=== PATIENT | female | born 1955 | race African-American/Black ===

== ENCOUNTER 2016-05-17 15:03 | Emergency (ER) | payer OTHER, MEDICAID ==
[~2016-05-17] VITALS: Ht 157.5 cm; Wt 90.0 kg
[~2016-05-17 15:03] MED LIST: ALBU8.5H3 INH; CARI350T29 PO; CYCL-319 PO; FURO-109 PO; HYDR-906 PO; IBUP-1542 PO; PRED50 PO
[2016-05-17 15:12] VITALS: Ht 157.5 cm; Wt 90.0 kg
[2016-05-17] MEDS ORDERED: IBUPROFEN 800 MG TAB PO ONE (15:30)
[2016-05-17 15:39] LABS: BASOPHILS % 0.6 % (0.0-2.0); EOSINOPHILS % 0.5 % (0.0-7.0); HEMATOCRIT 40.2 % (37.0-47.0); HEMOGLOBIN 13.5 g/dl (12.0-16.0); LYMPHOCYTES % 38.9 % (15.0-51.0); MEAN CORPUSCULAR HGB CONC 33.6 g/dl (32.0-37.0); MEAN CORPUSCULAR VOLUME 86.4 fl (82.0-101.0); MEAN PLATELET VOLUME 7.5 fl (7.4-10.4); MONOCYTE # 0.4 10^3/ul (0.3-0.9); MONOCYTES % 4.6 % (0.0-11.0); NEUTROPHIL # 4.3 10^3/ul (1.6-7.5); NEUTROPHILS % 55.4 % (39.0-77.0); PLATELET COUNT 326 10^3/UL (140-440); RED BLOOD COUNT 4.65 10^6/ul (4.20-5.40); RED CELL DISTRIBUTION WIDTH 16.2 % (11.5-14.5); UNCORRECTED WBC 7.7 10^3/ul (4.8-10.8); WHITE BLOOD COUNT 7.7 10^3/ul (4.8-10.8)
[2016-05-17 15:41] LABS: CONDITION 1; LH ANALYZER COMMENTS 1
--- NOTE | 2016-05-17 15:42 | RADRPT ---
PROCEDURE: XR Chest. CLINICAL INDICATION: Chest pain TECHNIQUE: Chest AP portable COMPARISON: 11/27/2015 FINDINGS: Left-sided single lead AICD device The mediastinal structures are unremarkable. There is calcification of the thoracic aorta (consiste nt with atherosclerosis). The heart is normal in size and configuration. The pulmonary vascularity is normal. The lung jolley are unremarkable. No consolidation is identified. The pleural spaces are unremarkable. The osseous structures are unremarkable. IMPRESSION: Calcification of the thoracic aorta (consistent with atherosclerosis). No evidence for active cardiopulmonary disease. RPTAT: HGDB .Paulie Valencia MD, Date Time Electronically viewed and signed by .Paulie Valencia MD, on 05/17/2016 15:42 .B/
[2016-05-17 15:46] LABS: CHLORIDE 109 mmol/L (97-110); INR 0.91; POTASSIUM 3.7 mmol/L (3.5-5.1); PROTIME 12.3 Sec (12.2-14.2); SODIUM 149 mmol/L (135-144)
[2016-05-17 15:49] LABS: ANION GAP 19 (8-16); BLOOD UREA NITROGEN 18 mg/dl (7-20); CALCIUM 9.2 mg/dl (8.4-10.2); CARBON DIOXIDE 25 mmol/L (21-31); CREATININE 0.75 mg/dl (0.44-1.00); GLUCOSE 83 mg/dl (70-220)
[2016-05-17 15:58] LABS: B-TYPE NATRIURETIC PEPTIDE 253 PG/ML (0-125)
[2016-05-17 16:06] LABS: TROPONIN-I < 0.012 ng/ml (0.00-0.12)
[2016-05-17] MEDS ORDERED: OSLT75C PO (16:13)
[2016-05-17] MEDS ORDERED: ALBU18HF INHALATION (16:13)
[2016-05-17] MEDS ORDERED: IBUP800T25 PO (16:13)
[2016-05-17] MEDS ORDERED: ONDANSETRON (ODT) 4 MG TAB ODT STA (16:16)
--- NOTE | 2016-05-17 16:19 | ERD ---
ER Documentation Chief Complaint Date/Time DATE: 05/17/16 TIME: 16:16 Chief Complaint SOB for 1 day, cough, body aches HPI 60-year-old female who presents with multiple complaints for 24 hours. She describes dry nonproductive cough, diffuse myalgias and body aches. She also describes a history of chronic pain and chronic sciatic pain. She denies any PND orthopnea or lower extremity swelling but does describe "heart issues ". She denies any chest pain, no pleuritic pain, no dyspnea on exertion. She felt congested and presented herself to the emergency room. ROS All systems reviewed and are negative except as per history of present illness. Medications Home Meds Active Scripts Albuterol Sulfate* (Ventolin HFA*) 18 Gm Hfa.aer.ad, 2 PUFF INHALATION Q4H, #1 INHALER Prov:GAETANO LOCKWOOD MD 05/17/16 Ibuprofen* (Motrin*) 800 Mg Tab, 800 MG PO Q6H Y for PAIN AND OR ELEVATED TEMP, #30 TAB Prov:GAETANO LOCKWOOD MD 05/17/16 Oseltamivir Phosphate* (Tamiflu*) 75 Mg Capsule, 75 MG PO BID for 5 Days, CAP Prov:GAETANO LOCKWOOD MD 05/17/16 Hydrocodone/Acetaminophen ([place] 5-325 Tablet) 1 Each Tablet, 1 EACH PO Q8 Y for PAIN LEVEL 6-10, #20 TAB Prov:PRADIP SAGE 11/27/15 Discontinued Scripts Cyclobenzaprine Hcl* (Cyclobenzaprine Hcl*) 10 Mg Tablet, 10 MG PO TID, #15 TAB Prov:ABIGAIL AHUMADA NP 12/05/15 Hydrocodone/Acetaminophen ([place] 5-325 Tablet) 1 Each Tablet, 1 TAB PO Q6H Y for PAIN, #7 TAB Prov:ABIGAIL AHUMADA NP 12/05/15 Ibuprofen* (Motrin*) 600 Mg Tab, 600 MG PO Q6H Y for PAIN AND OR ELEVATED TEMP, #30 TAB Prov:ABIGAIL AHUMADA NP 12/05/15 Carisoprodol* (Carisoprodol*) 350 Mg Tablet, 350 MG PO Q8 Y for MUSCLE SPASMS, # 10 TAB Prov:PRADIP SAGE 11/27/15 Prednisone (Prednisone) 50 Mg Tab, 50 MG PO DAILY for 5 Days, TAB Prov:PRADIP SAGE 11/27/15 Albuterol Sulfate* (Proair HFA*) 8.5 Gm Hfa.aer.ad, 2 PUFF INH Q4H Y for WHEEZING AND SOB, #1 INHALER Prov:PRADIP SAGE 11/27/15 Furosemide* (Lasix*) 40 Mg Tablet, 40 MG PO DAILY, #20 TAB Prov:PRADIP SAGE 11/27/15 Allergies Allergies: Coded Allergies: lisinopril (Unverified Allergy, Unknown, 05/17/16) PMhx/Soc History of Surgery: Yes (Pacemaker Placed/Removal,) Anesthesia Reaction: No Hx Neurological Disorder: Yes (Bruxism) Hx Respiratory Disorders: Yes (Asthma) Hx Cardiac Disorders: Yes (HTN,CHF) Hx Psychiatric Problems: No Hx Miscellaneous Medical Probl: Yes (L Foot Fx,Muscle Spasms) Hx Alcohol Use: No Hx Substance Use: No Hx Tobacco Use: No FmHx Family History: No diabetes Physical Exam Vitals Vital Signs Date Time Temp Pulse Resp B/P Pulse Ox O2 Delivery O2 Flow Rate FiO2 05/17/16 15:12 98.2 84 16 121/85 100 Physical Exam General: Well developed, well nourished, no acute distress Head: Normocephalic, atraumatic. Eyes: Pupils equally reactive, EOM intact ENT: Moist mucous membranes Neck: Supple, no lymphadenopathy Respiratory: Lungs clear bilaterally, no distress Cardiovascular: RRR, no murmurs, rubs, or gallops Abdominal: Soft, non-tender, non-distended, no peritoneal signs : Deferred MSK: No edema, no unilateral swelling, 5/5 strength Neurologic: Alert and oriented, moving all extremities, normal speech, no focal weakness, no cerebellar signs Skin: No rash Psych: Normal mood Result Diagram: 05/17/16 1525 05/17/16 1525 Results 24 hrs Laboratory Tests Test 05/17/16 15:25 Activated Partial Thromboplast Time 27.0Sec Anion Gap 19 B-Type Natriuretic Peptide 253PG/ML Basophils # 0.010^3/ul Basophils % 0.6% Blood Morphology Comment Blood Urea Nitrogen 18mg/dl Calcium Level 9.2mg/dl Carbon Dioxide Level 25mmol/L Chloride Level 109mmol/L Creatinine 0.75mg/dl Eosinophils # 0.010^3/ul Eosinophils % 0.5% Glucose Level 83mg/dl Hematocrit 40.2% Hemoglobin 13.5g/dl INR International Normalized Ratio 0.91 Lymphocytes # 3.010^3/ul Lymphocytes % 38.9% Mean Corpuscular Hemoglobin 29.0pg Mean Corpuscular Hemoglobin Concent 33.6g/dl Mean Corpuscular Volume 86.4fl Mean Platelet Volume 7.5fl Monocytes # 0.410^3/ul Monocytes % 4.6% Neutrophils # 4.310^3/ul Neutrophils % 55.4% Nucleated Red Blood Cells # 0.010^3/ul Nucleated Red Blood Cells % 0.0/100WBC Platelet Count 29227^3/UL Potassium Level 3.7mmol/L Prothrombin Time 12.3Sec Prothrombin Time Ratio 1.0 Red Blood Count 4.6510^6/ul Red Cell Distribution Width 16.2% Sodium Level 149mmol/L Troponin I < 0.012ng/ml White Blood Count 7.710^3/ul Current Medications Medications (Trade) Dose Ordered Sig/Valorie Route PRN Reason Start Time Stop Time Status Last Admin Dose Admin Ibuprofen (Motrin) 800 mg ONCE ONCE PO 05/17/16 15:30 05/17/16 15:31 DC 05/17/16 15:30 Procedures/MDM EKG, MONITORS, & DIAGNOSTIC IMAGING: EKG: I reviewed and interpreted a 12-lead EKG. Rhythm: Normal sinus rhythm Ectopy: None Intervals: No abnormalities ST segments: No elevations or depressions T waves: No contiguous inversions Chest x-ray: I reviewed and interpreted a 1 view of the chest Mediastinum: No enlargement Cardiac silhouette: No cardiomegaly Airspace: Clear lung jolley bilaterally without evidence of pneumothorax Bones: No evidence of fracture LAB INTERPRETATION: No leukocytosis, negative troponin, indeterminate BNP MEDICAL DECISION MAKING: The patient presents with cough congestion and flulike symptoms. The patient will likely benefit from Tamiflu given the patient's age, comorbidities and duration of symptoms. I do not believe this is consistent with cardiac etiology or CHF however the patient does describe some cardiac issues and does have an AICD in place. However, clinically she has no evidence of volume overload no exertional symptoms and again no chest pain. ER COURSE: Troponin is negative, BNP is indeterminate. The patient was given chronic pain medication in the form of [place]. I believe the patient would benefit from Tamiflu initiation, Ventolin and symptom control. The patient was advised to follow-up with her primary care physician and we did discuss return precautions. At this time no indication for antibiotics. I kept the patient and/or family informed of laboratory and diagnostic imaging results throughout the emergency room course. DISPOSITION PLAN: We discussed follow up with the patient's primary care doctor within 24 to 48 hours as needed. We also discussed return to the emergency room for worsening symptoms or worsening condition. Discharge Medications: Tamiflu, Ventolin, Motrin Departure Diagnosis: Primary Impression: Cough Additional Impression: Influenza-like illness Condition: Stable Patient Instructions: Influenza (Adult) Referrals: [facility], [facility] YOU HAVE RECEIVED A MEDICAL SCREENING EXAM AND THE RESULTS INDICATE THAT YOU DO NOT HAVE A CONDITION THAT REQUIRES URGENT TREATMENT IN THE EMERGENCY DEPARTMENT. FURTHER EVALUATION AND TREATMENT OF YOUR CONDITION CAN WAIT UNTIL YOU ARE SEEN IN YOUR DOCTORS OFFICE WITHIN THE NEXT 1-2 DAYS. IT IS YOUR RESPONSIBILITY TO MAKE AN APPOINTMENT FOR [facility]. IF YOU HAVE A PRIMARY DOCTOR --you should call your primary doctor and schedule an appointment IF YOU DO NOT HAVE A PRIMARY DOCTOR YOU CAN CALL OUR PHYSICIAN REFERRAL HOTLINE AT IF YOU CAN NOT AFFORD TO SEE A PHYSICIAN YOU CAN CHOSE FROM THE FOLLOWING [facility], [facility] [address] [facility]. [facility] [address] [facility] [address] [facility] [facility] [address] [facility] [facility] [address] [facility]. [facility]. [address] [facility]. [facility] YOU HAVE RECEIVED A MEDICAL SCREENING EXAM AND THE RESULTS INDICATE THAT YOU DO NOT HAVE A CONDITION THAT REQUIRES URGENT TREATMENT IN THE EMERGENCY DEPARTMENT. FURTHER EVALUATION AND TREATMENT OF YOUR CONDITION CAN WAIT UNTIL YOU ARE SEEN IN YOUR DOCTORS OFFICE WITHIN THE NEXT 1-2 DAYS. IT IS YOUR RESPONSIBILITY TO MAKE AN APPOINTMENT FOR [facility]. IF YOU HAVE A PRIMARY DOCTOR --you should call your primary doctor and schedule and appointment IF YOU DO NOT HAVE A PRIMARY DOCTOR YOU CAN CALL OUR PHYSICIAN REFERRAL HOTLINE AT . IF YOU CAN NOT AFFORD TO SEE A PHYSICIAN YOU CAN CHOSE FROM THE FOLLOWING [facility] INSTITUTIONS: [facility] [address] [place] [address] [facility] [address] [place] [address] [facility] [address] [place] [address] Additional Instructions: Call your primary care doctor TOMORROW for an appointment during the next 1 WEEK.Tell the department secretary that you were referred from this facility.See the doctor sooner or return here if your condition worsens before your appointment time. GAETANO LOCKWOOD MD May 17, 2016 16:19
[2016-05-17] MEDS ORDERED: HYDROCODONE/APAP (10/325) TAB PO ONE (16:30)
[2016-05-17 16:33] VITALS: BP 137/84; PULSE 90; RESP 16; TEMP 98.1
== END 2016-05-17 16:45 | disposition home or self-care (01) ==
LOC: E/R 15:03
DX: R05 Cough (principal); R06.02 Shortness of breath; M79.1 Myalgia; J45.909 Unspecified asthma, uncomplicated; I10 Essential (primary) hypertension; I50.9 Heart failure, unspecified; Z95.0 Presence of cardiac pacemaker
CPT/HCPCS: 36415; 71010; 80048; 83880; 84484; 85025; 85610; 85730; 93005

== ENCOUNTER 2016-07-13 19:35 | Emergency (ER) | payer MEDICAID, MEDICARE, OTHER ==
[~2016-07-13] VITALS: Wt 83.5 kg
[~2016-07-13 19:35] MED LIST changes: +ALBU18HF INHALATION; -ALBU8.5H3 INH; -CARI350T29 PO; -CYCL-319 PO; -FURO-109 PO; -IBUP-1542 PO; +IBUP800T25 PO; +OSLT75C PO; -PRED50 PO
[2016-07-13] MEDS ORDERED: KETOROLAC 60 MG INJ IM STA (20:14)
[2016-07-13] MEDS ORDERED: OXYCODONE/ACETAMINOPHEN (5/325) TAB PO ONE ×2 (20:30→21:00)
[2016-07-13] MEDS ORDERED: OXYC-279 PO (20:41)
[2016-07-13] MEDS ORDERED: MED4DP PO (20:42)
[2016-07-13] MEDS ORDERED: D-ME473S18 PO (20:43)
[2016-07-13] MEDS ORDERED: ONDA4TAB8 PO (20:43)
[2016-07-13 20:56] VITALS: BP 141/73; PULSE 89; RESP 17; TEMP 99.3
--- NOTE | 2016-07-13 20:58 | ERD ---
ER Documentation Chief Complaint Date/Time DATE: 07/13/16 TIME: 20:55 Chief Complaint lower back pain radiating to left leg HPI This is a 60-year-old female that presents to the ER with chronic back pain. Patient has had adequate for years and takes [place] for her pain however has not been working. Pain is throbbing in quality located in the left buttocks radiating down her left leg. Pain is severe and constant. Patient denies any urinary bowel incontinence. She denies any saddle like anesthesia. Patient denies any fevers or chills. She denies any recent falls. Patient denies any urinary frequency or dysuria. ROS 12 point review of systems was done, all negative except per HPI. Medications Home Meds Active Scripts Dextromethorphan Hb-Promethazine Hcl (Promethazine DM Syrup) 473 Ml Syrup, 10 ML PO Q6H Y for COUGH, #4 OZ Prov:DONYA JARAMILLO 07/13/16 Ondansetron Hcl* (Zofran*) 4 Mg Tablet, 4 MG PO Q6H for NAUSEA AND/OR VOMITING, #30 TAB Prov:DONYA JARAMILLO 07/13/16 Methylprednisolone* (Medrol* DOSE PACK) 4 Mg/Dose-Pack Tab.ds.pk, 4 MG PO . DIRECTED for 6 Days, PACKET Prov:DONYA JARAMILLO 07/13/16 Oxycodone HCl/Acetaminophen (Percocet 5-325 mg Tablet) 1 Each Tablet, 1 EACH PO Q6, #10 TAB Prov:DONYA JARAMILLO 07/13/16 Albuterol Sulfate* (Ventolin HFA*) 18 Gm Hfa.aer.ad, 2 PUFF INHALATION Q4H, #1 INHALER Prov:GAETANO LOCKWOOD MD 05/17/16 Ibuprofen* (Motrin*) 800 Mg Tab, 800 MG PO Q6H Y for PAIN AND OR ELEVATED TEMP, #30 TAB Prov:GAETANO LOCKWOOD MD 05/17/16 Oseltamivir Phosphate* (Tamiflu*) 75 Mg Capsule, 75 MG PO BID for 5 Days, CAP Prov:GAETANO LOCKWOOD MD 05/17/16 Hydrocodone/Acetaminophen ([place] 5-325 Tablet) 1 Each Tablet, 1 EACH PO Q8 Y for PAIN LEVEL 6-10, #20 TAB Prov:PRADIP SAGE 11/27/15 Allergies Allergies: Coded Allergies: lisinopril (Unverified Allergy, Unknown, 07/13/16) PMhx/Soc History of Surgery: Yes (Pacemaker Placed/Removal,) Anesthesia Reaction: No Hx Neurological Disorder: Yes (Bruxism) Hx Respiratory Disorders: Yes (Asthma) Hx Cardiac Disorders: Yes (HTN,CHF) Hx Psychiatric Problems: No Hx Miscellaneous Medical Probl: Yes (L Foot Fx,Muscle Spasms) Hx Alcohol Use: No Hx Substance Use: No Hx Tobacco Use: No Physical Exam Vitals Vital Signs Date Time Temp Pulse Resp B/P Pulse Ox O2 Delivery O2 Flow Rate FiO2 07/13/16 19:43 99.6 104 20 136/78 98 Physical Exam GENERAL: The patient is well developed and appropriate for usual state of health , in no apparent distress. CHEST: Clear to auscultation bilaterally. There are no rales, wheezes or rhonchi. HEART: Regular rate and rhythm. No murmurs, clicks, rubs or gallops. ABDOMEN: Soft, nontender and nondistended. Good bowel sounds. No rebound or guarding. No gross peritonitis. No gross organomegaly or masses. No Jacob sign or McBurney point tenderness. No pulsatile abdominal mass. BACK: No midline or flank tenderness. Tense paraspinal muscles. Negative leg raise test. No step- offs. EXTREMITIES: Full range of motion. Grossly neurovascularly intact. NEURO: Alert and oriented. Cranial nerves II through XII are intact. Results 24 hrs Current Medications Medications (Trade) Dose Ordered Sig/Valorie Route PRN Reason Start Time Stop Time Status Last Admin Dose Admin Ketorolac Tromethamine (Toradol) 60 mg ONCE STAT IM 07/13/16 20:14 07/13/16 20:16 DC 07/13/16 20:23 Oxycodone/ Acetaminophen (Percocet (5/ 325)) 1 tab ONCE ONCE PO 07/13/16 20:30 07/13/16 20:31 DC 07/13/16 20:23 Oxycodone/ Acetaminophen (Percocet (5/ 325)) 1 tab ONCE ONCE PO 07/13/16 21:00 07/13/16 21:01 Procedures/MDM Differential Diagnosis includes but is not limited to back strain, vertebral fracture, epidural abscess, cauda equina, herniated disc, AAA rupture, kidney stones, UTI, pyelonephritis. Patient has acute on chronic back pain. She suffers from sciatica. Patient was given Toradol IM in the ER without any complications and 1 Percocet. Patient was requesting Dilaudid, however I do not believe that this is necessary. Patient for cauda equina, epidural abscess is low. Patient is neurovascularly intact and has full range of motion of bilateral extremities. Patient will be sent home with a Medrol Dose pack and a short course of percocet. Patient is to follow-up with her primary care doctor within 1-2 days or return to ER sooner if symptoms worsen. My medical decision making was shared with patient she understands and agrees with plan. Departure Diagnosis: Primary Impression: Back pain Condition: Stable Patient Instructions: Back Pain W/ Sciatica Additional Instructions: Call your primary care doctor TOMORROW for an appointment during the next 1-2 days.See the doctor sooner or return here if your condition worsens before your appointment time. DONYA JARAMILLO Jul 13, 2016 20:58
== END 2016-07-13 21:24 | disposition home or self-care (01) ==
LOC: FTE 19:35
DX: M54.5 Low back pain (principal); I10 Essential (primary) hypertension; I50.9 Heart failure, unspecified; J45.909 Unspecified asthma, uncomplicated; Z95.0 Presence of cardiac pacemaker
CPT/HCPCS: 96372; J1885

== ENCOUNTER 2016-09-04 18:28 | Emergency (ER) | payer MEDICARE, MEDICAID ==
[~2016-09-04] VITALS: Ht 152.4 cm; Wt 81.8 kg
[~2016-09-04 18:28] MED LIST changes: +D-ME473S18 PO; +MED4DP PO; +ONDA4TAB8 PO; +OXYC-279 PO
[2016-09-04 18:55] VITALS: Ht 152.4 cm; Wt 81.8 kg
[2016-09-04] MEDS ORDERED: KETOROLAC 30 MG INJ IM STA (19:50)
[2016-09-04] MEDS ORDERED: NAPR-260 PO (19:52)
[2016-09-04] MEDS ORDERED: ALBU8.5H3 INH (19:52)
[2016-09-04] MEDS ORDERED: HYDROCODONE/APAP (5/325) TAB PO ONE (20:00)
--- NOTE | 2016-09-04 20:04 | ERD ---
ER Documentation Chief Complaint Date/Time DATE: 09/04/16 TIME: 19:58 Chief Complaint c/o increasing back pain today. denies trauma. HPI Patient is a 60-year-old female with past medical history of chronic back pain, chronic bronchitis, who presents to the ED with worsening back pain today. Patient has had chronic back pain for many years now. Patient reports taking [place] with no relief of symptoms. Patient denies any recent falls or trauma. She states that the pain does radiate down her left buttocks. Patient denies any saddle anesthesia, urinary incontinence, stool incontinence, fever, chills, chest pain, shortness of breath, dysuria, urinary frequency, urinary urgency or hematuria. She is requesting refill of her albuterol inhaler at this time. ROS All systems reviewed and are negative except as per history of present illness. Medications Home Meds Active Scripts Hydrocodone/Acetaminophen (Olive Branch 5-325 Tablet) 1 Each Tablet, 1 TAB PO Q6H Y for PAIN, #7 TAB Prov:CHAVEZ LIM PA-C 09/04/16 Albuterol Sulfate* (Proair HFA*) 8.5 Gm Hfa.aer.ad, 2 PUFF INH Q4, #1 INHALER Prov:CHAVEZ LIM PA-C 09/04/16 Naproxen* (Naprosyn*) 500 Mg Tablet, 500 MG PO BID Y for PAIN AND/OR INFLAMMATION, #30 TAB Prov:CHAVEZ LIM PA-C 09/04/16 Dextromethorphan Hb-Promethazine Hcl (Promethazine DM Syrup) 473 Ml Syrup, 10 ML PO Q6H Y for COUGH, #4 OZ Prov:DONYA JARAMILLO 07/13/16 Ondansetron Hcl* (Zofran*) 4 Mg Tablet, 4 MG PO Q6H for NAUSEA AND/OR VOMITING, #30 TAB Prov:DONYA JARAMILLO 07/13/16 Methylprednisolone* (Medrol* DOSE PACK) 4 Mg/Dose-Pack Tab.ds.pk, 4 MG PO . DIRECTED for 6 Days, PACKET Prov:DONYA JARAMILLO 07/13/16 Oxycodone HCl/Acetaminophen (Percocet 5-325 mg Tablet) 1 Each Tablet, 1 EACH PO Q6, #10 TAB Prov:DONYA JARAMILLO 07/13/16 Albuterol Sulfate* (Ventolin HFA*) 18 Gm Hfa.aer.ad, 2 PUFF INHALATION Q4H, #1 INHALER Prov:GAETANO LOCKWOOD MD 05/17/16 Ibuprofen* (Motrin*) 800 Mg Tab, 800 MG PO Q6H Y for PAIN AND OR ELEVATED TEMP, #30 TAB Prov:GAETANO LOCKWOOD MD 05/17/16 Oseltamivir Phosphate* (Tamiflu*) 75 Mg Capsule, 75 MG PO BID for 5 Days, CAP Prov:GAETANO LOCKWOOD MD 05/17/16 Hydrocodone/Acetaminophen (O[place] 5-325 Tablet) 1 Each Tablet, 1 EACH PO Q8 Y for PAIN LEVEL 6-10, #20 TAB Prov:PRADIP SAGE 11/27/15 Allergies Allergies: Coded Allergies: lisinopril (Unverified Allergy, Unknown, 07/13/16) PMhx/Soc History of Surgery: Yes (Pacemaker Placed/Removal,) Anesthesia Reaction: No Hx Neurological Disorder: Yes (Bruxism) Hx Respiratory Disorders: Yes (Asthma) Hx Cardiac Disorders: Yes (HTN,CHF) Hx Psychiatric Problems: No Hx Miscellaneous Medical Probl: Yes (L Foot Fx,Muscle Spasms) Hx Alcohol Use: Yes (daily pint) Hx Substance Use: No Hx Tobacco Use: Yes (1/2 ppd) Smoking Status: Never smoker FmHx Family History: No diabetes Physical Exam Vitals Vital Signs Date Time Temp Pulse Resp B/P Pulse Ox O2 Delivery O2 Flow Rate FiO2 09/04/16 18:55 98.0 101 20 141/86 96 Physical Exam GENERAL: Well-developed, well-nourished female. Appears in no acute distress. HEAD: Normocephalic, atraumatic. EYES: Pupils are equally reactive bilaterally. EOMs grossly intact. No conjunctival erythema. ENT: Moist mucous membranes. No uvula deviation. No kissing tonsils. NECK: Supple. No meningismus. Normal range of motion of the neck. LUNG: Clear to auscultation bilaterally. No rhonchi, wheezing, rales or coarse breath sounds. HEART: Regular rate and rhythm. No murmurs, rubs or gallops. ABDOMEN: No scars, ecchymosis or rashes noted. Soft, nontender, and nondistended. Positive bowel sounds in all four quadrants. No rebound tenderness , no guarding. (-) McBurney's point tenderness. No CVA tenderness. No pulsatile masses of the abdomen noted. BACK: No midline tenderness. Tender to palpation of the bilateral paraspinals muscles. Negative straight leg raise. No ecchymosis or bruising noted. EXTREMITIES: Equal pulses bilaterally. No peripheral clubbing, cyanosis or edema. No unilateral leg swelling. NEUROLOGIC: Alert and oriented. Moving all four extremities without any difficulty. Normal speech. Steady gait. SKIN: Normal color. Warm and dry. No rashes or lesions. Results 24 hrs Current Medications Medications (Trade) Dose Ordered Sig/Valorie Route PRN Reason Start Time Stop Time Status Last Admin Dose Admin Acetaminophen/ Hydrocodone Bitart (O[place] (5/325)) 1 tab ONCE ONCE PO 09/04/16 20:00 09/04/16 20:01 DC 09/04/16 20:22 Ketorolac Tromethamine (Toradol) 30 mg ONCE STAT IM 09/04/16 19:50 09/04/16 19:51 DC 09/04/16 20:22 Procedures/MDM MEDICAL DECISION MAKING: This is a 60-year-old female with past medical history of chronic back pain who presents today with increasing back pain. Vital signs were reviewed. Patient was afebrile. Patient denied any saddle anesthesia, urinary incontinence, bowel incontinence, falls or trauma. I reviewed the patient's chart, had CT scans of her lumbar spine completed last year. CT scan of lumbar spine showed lumbar spondylosis. Given that patient denied any recent trauma or falls, I do not believe that x-ray imaging or CT imaging are necessary at this time. Patient requested Dilaudid. I advised the patient that I will not be able to provide her with Dilaudid at this time. Patient was noted to be ambulating throughout the emergency department without any difficulty. Patient was given Toradol IM and one [place] at this time. Advised patient she will need to follow-up with the spray ii painter and/or [facility] specialists for her ongoing chronic back pain. I looked up the patient's narcotic history and the cures report. Patient was last prescribed Percocet on 07-13-16 here at [facility]. I advised the patient that I will give her 7 tabs of [place] at this time. No additional refills will be provided. Patient was advised that she will need to follow-up with his spray ii painter for any additional narcotic medication she needs. Given these findings, the patient's presentation is most consistent with acute exacerbation of chronic back pain. I have a much lower clinical concern for cauda equine syndrome, spinal fractures, epidural abscess, spinal metastases, osteomyelitis, muscle spasm, pyelonephritis or nephrolithiasis. PRESCRIPTIONS: [place], Naproxen, ProAir albuterol inhaler DISCHARGE: At this time, patient is stable for discharge and outpatient management. Patient provided with referral information for spray ii painter and epic [facility] specialists. RICE therapy and ROM exercises were advised to avoid stiffness. I have instructed the patient to follow-up with his/her primary care physician in 1-2 days. I have discussed with the patient the possibility of needing to see an [facility] specialists for further workup and imaging if the pain persists. I have instructed the patient to promptly return to the ER for any new or worsening symptoms including increased pain, swelling, warmth, urinary incontinence, stool incontinence, weakness or numbness. The patient and/ or family expressed understanding of and agreement with this plan. All questions were answered. Home care instructions were provided. Departure Diagnosis: Primary Impression: Back pain Back pain location: back pain in unspecified location Chronicity: chronic Back pain laterality: unspecified Qualified Code: M54.9 - Chronic back pain, unspecified back location, unspecified back pain laterality Condition: Stable Patient Instructions: Back Pain (Acute Or Chronic) Referrals: ERIC NOGUEIRA MD, ANTHONY Jr., [facility] YOU HAVE RECEIVED A MEDICAL SCREENING EXAM AND THE RESULTS INDICATE THAT YOU DO NOT HAVE A CONDITION THAT REQUIRES URGENT TREATMENT IN THE EMERGENCY DEPARTMENT. FURTHER EVALUATION AND TREATMENT OF YOUR CONDITION CAN WAIT UNTIL YOU ARE SEEN IN YOUR DOCTORS OFFICE WITHIN THE NEXT 1-2 DAYS. IT IS YOUR RESPONSIBILITY TO MAKE AN APPOINTMENT FOR FOLOW-UP CARE. IF YOU HAVE A PRIMARY DOCTOR --you should call your primary doctor and schedule an appointment IF YOU DO NOT HAVE A PRIMARY DOCTOR YOU CAN CALL OUR PHYSICIAN REFERRAL HOTLINE AT IF YOU CAN NOT AFFORD TO SEE A PHYSICIAN YOU CAN CHOSE FROM THE FOLLOWING [facility] [address] [facility] [address] [facility] [address] [facility] [address] [facility] [address] [facility] [facility] [address] [facility]. [facility] YOU HAVE RECEIVED A MEDICAL SCREENING EXAM AND THE RESULTS INDICATE THAT YOU DO NOT HAVE A CONDITION THAT REQUIRES URGENT TREATMENT IN THE EMERGENCY DEPARTMENT. FURTHER EVALUATION AND TREATMENT OF YOUR CONDITION CAN WAIT UNTIL YOU ARE SEEN IN YOUR DOCTORS OFFICE WITHIN THE NEXT 1-2 DAYS. IT IS YOUR RESPONSIBILITY TO MAKE AN APPOINTMENT FOR FOLOW-UP CARE. IF YOU HAVE A PRIMARY DOCTOR --you should call your primary doctor and schedule and appointment IF YOU DO NOT HAVE A PRIMARY DOCTOR YOU CAN CALL OUR PHYSICIAN REFERRAL HOTLINE AT . IF YOU CAN NOT AFFORD TO SEE A PHYSICIAN YOU CAN CHOSE FROM THE FOLLOWING [facility] INSTITUTIONS: [facility] [address] [place] [address] [facility] [address] [place] [address] [facility] [address] [place] [address] [facility] Hours: Mon-Fri 9:00 AM - 5:00 PM Additional Instructions: Take Olive [place] as you are prescribed. Given that you have refills at home, no additional refills will be provided at this time. Call your primary care doctor TOMORROW for an appointment during the next 1-2 days.See the doctor sooner or return here if your condition worsens before your appointment time. Patient advised to follow-up with an [facility] specialists for ongoing chronic back pain. Patient also given referral information for spray ii painter. CHAVEZ LIM PA-C Sep 04, 2016 20:04
[2016-09-04] MEDS ORDERED: HYDR-906 PO (20:25)
== END 2016-09-04 20:32 | disposition home or self-care (01) ==
LOC: FTE 18:28
DX: M54.9 Dorsalgia, unspecified (principal); F17.210 Nicotine dependence, cigarettes, uncomplicated; I10 Essential (primary) hypertension; I50.9 Heart failure, unspecified; J45.909 Unspecified asthma, uncomplicated; Z95.0 Presence of cardiac pacemaker
CPT/HCPCS: 96372; 99284; J1885

== ENCOUNTER 2016-11-03 14:36 | Emergency (ER) | payer OTHER, MEDICAID ==
[~2016-11-03] VITALS: Ht 149.9 cm; Wt 83.0 kg
[~2016-11-03 14:36] MED LIST changes: +ALBU8.5H3 INH; +NAPR-260 PO
[2016-11-03 14:49] VITALS: Ht 149.9 cm; Wt 83.0 kg
[2016-11-03] MEDS ORDERED: KETOROLAC 30 MG INJ IM STA (16:21)
[2016-11-03] MEDS ORDERED: HYDROCODONE/APAP (5/325) TAB PO ONE (17:00)
--- NOTE | 2016-11-03 17:22 | RADRPT ---
PROCEDURE: XR Lumbar Spine. CLINICAL INDICATION: Door fell on back TECHNIQUE: Two views of the lumbar spine are available for review COMPARISON: 12/05/2015 CT FINDINGS: The vertebral body heights are preserved. There are no acute fractures. There is slight right conv ex curvature of the lumbar spine. There is moderate to severe disk space narrowing at L4-L5 and L5- S1 with grade 1 anterolisthesis at L5-S1. Minimal retrolisthesis is also present at L4-L5. There i s mild to moderate disk space narrowing at L3-L4. The remaining disk spaces are maintained. There is facet arthropathy more prominent from L3-S1. The bilateral sacroiliac joints and sacral and the sacral arcuate lines are intact. RPTAT: ZZ IMPRESSION: 1. No acute fracture. 2. Moderate to severe degenerative disk disease at L4-L5 and L5-S1. 3. Mild to moderate degenerative disk disease at L3-L4. .Jane Galvez MD, Date Time Electronically viewed and signed by .Jane Galvez MD, on 11/03/2016 17:22 .T/
--- NOTE | 2016-11-03 17:24 | RADRPT ---
PROCEDURE: XR left Hip. CLINICAL INDICATION: Fall TECHNIQUE: AP view of the left hip were performed. COMPARISON: None. FINDINGS: Note that only the AP view was obtained, limiting evaluation. There is no definite acute fracture of the left hip. There is mild to moderate joint space narrowin g of the left hip with osseous spurring. The soft tissues around the left hip are unremarkable. RPTAT: ZZ IMPRESSION: Limited examination without a definite acute fracture. Mild to moderate osteoarthrosis of the left hip. A follow-up CT may be obtained for additional evaluation if clinically indicated. .Jaen Galvez MD, MD Date Time Electronically viewed and signed by .Jane Galvez MD, on 11/03/2016 17:24 .T/
[2016-11-03] MEDS ORDERED: NAPR-260 PO (17:28)
[2016-11-03] MEDS ORDERED: HYDR-906 PO (17:29)
[2016-11-03 17:41] VITALS: BP 142/76; PULSE 72; RESP 19; TEMP 98.2
--- NOTE | 2016-11-03 18:06 | ERD ---
ER Documentation Chief Complaint Date/Time DATE: 11/03/16 TIME: 18:01 Chief Complaint CAME IN VIA INTAKE DUE TO BACK PAIN HPI Patient is a 60-year-old female with a past medical history of chronic back pain , chronic bronchitis presents emergency department for acute worsening onset of her lower back pain. Patient states she was at the [facility] earlier today. While she was in the restroom, the restroom door broke off and hit her on the left back. Patient also reports left hip pain. Patient denies any falls. Patient denies taking any medication for her pain. She states she has not been able to get in with her touch up painter hand. Patient denies any radiation of the pain down her legs. Patient denies any saddle anesthesia, urinary incontinence, stool incontinence, fever, chills, chest pain, shortness of breath, dysuria, urinary frequency, urgency or hematuria. Patient is ambulating without any difficulty using her walker. ROS All systems reviewed and are negative except as per history of present illness. Medications Home Meds Active Scripts Hydrocodone/Acetaminophen (Ellsworth 5-325 Tablet) 1 Each Tablet, 1 TAB PO Q6H Y for PAIN, #7 TAB Prov:CHAVEZ LIM PA-C 11/03/16 Naproxen* (Naprosyn*) 500 Mg Tablet, 500 MG PO BID Y for PAIN AND/OR INFLAMMATION, #30 TAB Prov:CHAVEZ LIM PA-C 11/03/16 Hydrocodone/Acetaminophen (Ellsworth 5-325 Tablet) 1 Each Tablet, 1 TAB PO Q6H Y for PAIN, #7 TAB Prov:CHAVEZ LIM PA-C 09/04/16 Albuterol Sulfate* (Proair HFA*) 8.5 Gm Hfa.aer.ad, 2 PUFF INH Q4, #1 INHALER Prov:CHAVEZ LIM PA-C 09/04/16 Naproxen* (Naprosyn*) 500 Mg Tablet, 500 MG PO BID Y for PAIN AND/OR INFLAMMATION, #30 TAB Prov:CHAVEZ LIM PA-C 09/04/16 Dextromethorphan Hb-Promethazine Hcl (Promethazine DM Syrup) 473 Ml Syrup, 10 ML PO Q6H Y for COUGH, #4 OZ Prov:DONYA JARAMILLO 4/13/17 Ondansetron Hcl* (Zofran*) 4 Mg Tablet, 4 MG PO Q6H for NAUSEA AND/OR VOMITING, #30 TAB Prov:DONYA JARAMILLO 07/13/16 Methylprednisolone* (Medrol* DOSE PACK) 4 Mg/Dose-Pack Tab.ds.pk, 4 MG PO . DIRECTED for 6 Days, PACKET Prov:DONYA JARAMILOL 07/13/16 Oxycodone HCl/Acetaminophen (Percocet 5-325 mg Tablet) 1 Each Tablet, 1 EACH PO Q6, #10 TAB Prov:DONYA JARAMILLO 07/13/16 Albuterol Sulfate* (Ventolin HFA*) 18 Gm Hfa.aer.ad, 2 PUFF INHALATION Q4H, #1 INHALER Prov:GAETANO LOCKWOOD MD 05/17/16 Ibuprofen* (Motrin*) 800 Mg Tab, 800 MG PO Q6H Y for PAIN AND OR ELEVATED TEMP, #30 TAB Prov:GAETANO LOCKWOOD MD 05/17/16 Oseltamivir Phosphate* (Tamiflu*) 75 Mg Capsule, 75 MG PO BID for 5 Days, CAP Prov:GAETANO LOCKWOOD MD 05/17/16 Hydrocodone/Acetaminophen (Ellsworth 5-325 Tablet) 1 Each Tablet, 1 EACH PO Q8 Y for PAIN LEVEL 6-10, #20 TAB Prov:PRADIP SAGE 11/27/15 Allergies Allergies: Coded Allergies: lisinopril (Unverified Allergy, Unknown, 11/03/16) PMhx/Soc History of Surgery: Yes (Pacemaker Placed/Removal,) Anesthesia Reaction: No Hx Neurological Disorder: Yes (Bruxism) Hx Respiratory Disorders: Yes (Asthma) Hx Cardiac Disorders: Yes (HTN,CHF) Hx Psychiatric Problems: No Hx Miscellaneous Medical Probl: Yes (L Foot Fx,Muscle Spasms) Hx Alcohol Use: Yes (daily pint) Hx Substance Use: No Hx Tobacco Use: Yes (1/2 ppd) Smoking Status: Current every day smoker FmHx Family History: No diabetes Physical Exam Vitals Vital Signs Date Time Temp Pulse Resp B/P Pulse Ox O2 Delivery O2 Flow Rate FiO2 11/03/16 17:41 98.2 72 19 142/76 99 Room Air 11/03/16 14:49 98.5 76 18 122/66 99 Physical Exam GENERAL: Well-developed, well-nourished female. Appears in no acute distress. Speaking in full sentences HEAD: Normocephalic, atraumatic. EYES: Pupils are equally reactive bilaterally. EOMs grossly intact. No conjunctival erythema. ENT: Moist mucous membranes. No uvula deviation. No kissing tonsils. NECK: Supple. No meningismus. Normal range of motion of the neck. LUNG: Clear to auscultation bilaterally. No rhonchi, wheezing, rales or coarse breath sounds. HEART: Regular rate and rhythm. No murmurs, rubs or gallops. ness. BACK: No midline tenderness. Tender to palpation over the left paraspinous muscles. Hip Exam: No obvious deformity, step-offs, erythema, ecchymosis or swelling. Skin intact. Tender to palpation over the left iliac crest.. Stable gait. EXTREMITIES: Equal pulses bilaterally. No peripheral clubbing, cyanosis or edema. No unilateral leg swelling. NEUROLOGIC: Alert and oriented. Moving all four extremities without any difficulty. Normal speech. Steady gait with assistance of walker. SKIN: Normal color. Warm and dry. No rashes or lesions. Results 24 hrs Current Medications Medications (Trade) Dose Ordered Sig/Valorie Route PRN Reason Start Time Stop Time Status Last Admin Dose Admin Ketorolac Tromethamine (Toradol) 30 mg ONCE STAT IM 11/03/16 16:21 11/03/16 16:23 DC 11/03/16 16:33 Acetaminophen/ Hydrocodone Bitart (Ellsworth (5/325)) 1 tab ONCE ONCE PO 11/03/16 17:00 11/03/16 17:01 DC 11/03/16 16:50 Procedures/MDM ED COURSE: The patient was stable throughout ED course. I kept the patient and/or family informed of laboratory and diagnostic imaging results throughout the ED course. DIAGNOSTIC IMAGING: Read by radiologist. Patient: FRANCOISE CARRERO : 1955 Age: 60 Sex: F MR #: [id number] DOS: 11/03/16 1621 Ordering MD: CHAVEZ LIM PA-C Location: [facility] Room/Bed: PROCEDURE: XR left Hip. CLINICAL INDICATION: Fall TECHNIQUE: AP view of the left hip were performed. COMPARISON: None. FINDINGS: Note that only the AP view was obtained, limiting evaluation. There is no definite acute fracture of the left hip. There is mild to moderate joint space narrowing of the left hip with osseous spurring. The soft tissues around the left hip are unremarkable. RPTAT: ZZ IMPRESSION: Limited examination without a definite acute fracture. Mild to moderate osteoarthrosis of the left hip. A follow-up CT may be obtained for additional evaluation if clinically indicated. .Jane Galvez MD, Date Time Electronically viewed and signed by .Jane Galvez MD, on 11/03/2016 17: 24 .T/ CC: CHAVEZ LIM PA-C Patient: FRANCOISE CARRERO : 1955 Age: 60 Sex: F MR #: [id number] DOS: 11/03/16 1621 Ordering MD: CHAVEZ LIM PA-C Location: FT Room/Bed: PROCEDURE: XR Lumbar Spine. CLINICAL INDICATION: Door fell on back TECHNIQUE: Two views of the lumbar spine are available for review COMPARISON: 12/05/2015 CT FINDINGS: The vertebral body heights are preserved. There are no acute fractures. There is slight right convex curvature of the lumbar spine. There is moderate to severe disk space narrowing at L4-L5 and L5-S1 with grade 1 anterolisthesis at L5-S1. Minimal retrolisthesis is also present at L4-L5. There is mild to moderate disk space narrowing at L3-L4. The remaining disk spaces are maintained. There is facet arthropathy more prominent from L3-S1. The bilateral sacroiliac joints and sacral and the sacral arcuate lines are intact. RPTAT: ZZ IMPRESSION: 1. No acute fracture. 2. Moderate to severe degenerative disk disease at L4-L5 and L5-S1. 3. Mild to moderate degenerative disk disease at L3-L4. .Jane Galvez MD, MD Date Time Electronically viewed and signed by .Jane Galvez MD, MD on 11/03/2016 17: 22 .T/ CC: CHAVEZ LIM PA-C MEDICATIONS GIVEN: Toradol, Ellsworth Patient tolerated medication well with no adverse reactions. Patient reported improvement in pain. MEDICAL DECISION MAKING: This is a 60-year-old female with a history of chronic back pain,, chronic bronchitis who presents to the emergency department for concerns of worsening lower back pain as well as left hip pain. Patient [place] door fell off and hit her on the left hip and back. Patient is able to ambulate using her walker without any difficulty. Vital signs were reviewed. Patient was afebrile. Patient denied any saddle anesthesia, urinary incontinence, bowel incontinence. The patient reported a history of trauma, x-ray imaging of the lower back as well as the left hip were obtained. No signs of acute fractures. Findings did show chronic changes including osteoarthrosis of the left hip and degenerative disc changes of the L4 -L5, L5-S1. Patient was given both Toradol and Ellsworth here in the emergency department. Patient did report improvement in pain. Given these findings, the patients presentation is most consistent with acute exacerbation of chronic back pain and left hip pain. I have a much lower clinical concern for cauda equine syndrome, spinal fractures, hip fracture, epidural abscess, spinal metastases, osteomyelitis, aortic dissection, ruptured or leaking AA, DJD, sciatica, lumbar strain, muscle spasm, pyelonephritis or nephrolithiasis. PRESCRIPTIONS: Ellsworth, naproxen DISCHARGE: At this time, patient is stable for discharge and outpatient management. She was given a copy of all imaging studies obtained. Patient was advised that she will need to follow-up with her touch up painter hand for any additional refills of her narcotic medication. RICE therapy and ROM exercises were advised to avoid stiffness. I have instructed the patient to follow-up with his/her primary care physician in 1-2 days. I have discussed with the patient the possibility of needing to see an sales operations specialist for further workup and imaging if the pain persists. I have instructed the patient to promptly return to the ER for any new or worsening symptoms including increased pain, swelling, warmth, urinary incontinence, stool incontinence, weakness or numbness. The patient and/or family expressed understanding of and agreement with this plan. All questions were answered. Home care instructions were provided. Patients blood pressure was elevated (>120/80) but appears stable without evidence of hypertensive emergency, hypertensive urgency or end-organ failure. I had discussion with the patient about the risks of hypertension. I have advised the patient to follow up with his/her primary care physician for outpatient monitoring and treatment for hypertension in 2-3 days. I have instructed the patient to return to the ER for any new or worsening symptoms including chest pain, shortness of breath, headache, blurred vision, confusion, nausea, vomiting or LOC. Departure Diagnosis: Primary Impression: Back pain Back pain location: low back pain Chronicity: chronic Back pain laterality : unspecified Sciatica presence: unspecified whether sciatica present Qualified Code: M54.5 - Chronic low back pain, unspecified back pain laterality , with sciatica presence unspecified Additional Impression: Left hip pain Condition: Stable Patient Instructions: Back Pain (Acute Or Chronic) Referrals: [facility] YOU HAVE RECEIVED A MEDICAL SCREENING EXAM AND THE RESULTS INDICATE THAT YOU DO NOT HAVE A CONDITION THAT REQUIRES URGENT TREATMENT IN THE EMERGENCY DEPARTMENT. FURTHER EVALUATION AND TREATMENT OF YOUR CONDITION CAN WAIT UNTIL YOU ARE SEEN IN YOUR DOCTORS OFFICE WITHIN THE NEXT 1-2 DAYS. IT IS YOUR RESPONSIBILITY TO MAKE AN APPOINTMENT FOR FOLOW-UP CARE. IF YOU HAVE A PRIMARY DOCTOR --you should call your primary doctor and schedule an appointment IF YOU DO NOT HAVE A PRIMARY DOCTOR YOU CAN CALL OUR PHYSICIAN REFERRAL HOTLINE AT IF YOU CAN NOT AFFORD TO SEE A PHYSICIAN YOU CAN CHOSE FROM THE FOLLOWING [facility] [address] [facility]. [facility] [address] [facility]. [facility] [place] [address] [facility]. [facility] [address] [facility]. [facility] [address] [facility]. [facility]. [address] [facility]. [facility] YOU HAVE RECEIVED A MEDICAL SCREENING EXAM AND THE RESULTS INDICATE THAT YOU DO NOT HAVE A CONDITION THAT REQUIRES URGENT TREATMENT IN THE EMERGENCY DEPARTMENT. FURTHER EVALUATION AND TREATMENT OF YOUR CONDITION CAN WAIT UNTIL YOU ARE SEEN IN YOUR DOCTORS OFFICE WITHIN THE NEXT 1-2 DAYS. IT IS YOUR RESPONSIBILITY TO MAKE AN APPOINTMENT FOR FOLOW-UP CARE. IF YOU HAVE A PRIMARY DOCTOR --you should call your primary doctor and schedule and appointment IF YOU DO NOT HAVE A PRIMARY DOCTOR YOU CAN CALL OUR PHYSICIAN REFERRAL HOTLINE AT . IF YOU CAN NOT AFFORD TO SEE A PHYSICIAN YOU CAN CHOSE FROM THE FOLLOWING [facility] INSTITUTIONS: [facility] [address] [place] [address] [facility] [address] [place] [address] [facility] [address] [place] [address] Additional Instructions: Call your primary care doctor TOMORROW for an appointment during the next 1-2 days.See the doctor sooner or return here if your condition worsens before your appointment time. Follow-up with your touch up painter hand for any additional refills of medications. CHAVEZ LIM PA-C Nov 03, 2016 18:06
== END 2016-11-03 17:44 | disposition home or self-care (01) ==
LOC: FTE 14:36
DX: M54.5 Low back pain (principal); M25.552 Pain in left hip; J45.909 Unspecified asthma, uncomplicated; I10 Essential (primary) hypertension; I50.9 Heart failure, unspecified; F17.210 Nicotine dependence, cigarettes, uncomplicated
CPT/HCPCS: 72100; 73510; 96372; 99284; J1885

== ENCOUNTER 2017-02-27 15:51 | Emergency (ER) | payer MEDICAID, MEDICARE ==
[~2017-02-27] VITALS: Ht 160 cm; Wt 80.1 kg
[2017-02-27 16:04] VITALS: Ht 160 cm; Wt 80.1 kg
== END 2017-02-27 23:21 | disposition left against medical advice (07) ==
LOC: E/R 15:51
DX: Z53.21 Procedure and treatment not carried out due to patient leaving prior to being seen by health care provider (principal)

== ENCOUNTER 2017-03-03 04:29 | Observation (INO) | payer OTHER ==
[2017-03-03] VITALS (9 sets, daily range): BP systolic 125–216; BP diastolic 64–96; PULSE 72–103; RESP 18–20; TEMP 98; Ht 152.4 cm; Wt 78.4 kg
[~2017-03-03] VITALS: Ht 152.4 cm; Wt 78.4 kg
[2017-03-03] MEDS ORDERED: METHYLPREDNISOLONE 125 MG INJ ONE (04:30)
--- NOTE | 2017-03-03 04:32 | ERD ---
ER Documentation Chief Complaint Chief Complaint sob HPI The patient is a 67 year old female, presenting to the ER because of acute shortness of breath 1 hr prior to arrival. She has similar symptoms previously. She denies syncope, near syncope, neck pain, chest pain, abdominal pain, vomiting, dysuria. She still smokes Past medical history: Asthma, CAD Surgical history: Pacemaker ROS All systems reviewed and are negative except as per history of present illness. Medications Home Meds Active Scripts Hydrocodone/Acetaminophen (Hopewell 5-325 Tablet) 1 Each Tablet, 1 TAB PO Q6H Y for PAIN, #7 TAB Prov:CARINACHAVEZ Real-C 11/03/16 Naproxen* (Naprosyn*) 500 Mg Tablet, 500 MG PO BID Y for PAIN AND/OR INFLAMMATION, #30 TAB Prov:CARINACHAVEZ PA-C 11/03/16 Hydrocodone/Acetaminophen (Hopewell 5-325 Tablet) 1 Each Tablet, 1 TAB PO Q6H Y for PAIN, #7 TAB Prov:CHAVEZ LIM-C 09/04/16 Albuterol Sulfate* (Proair HFA*) 8.5 Gm Hfa.aer.ad, 2 PUFF INH Q4, #1 INHALER Prov:CARINACHAVEZ Real-C 09/04/16 Naproxen* (Naprosyn*) 500 Mg Tablet, 500 MG PO BID Y for PAIN AND/OR INFLAMMATION, #30 TAB Prov:CARINACHAVEZ Real-C 09/04/16 Dextromethorphan Hb-Promethazine Hcl (Promethazine DM Syrup) 473 Ml Syrup, 10 ML PO Q6H Y for COUGH, #4 OZ Prov:DONYA JARAMILLO 07/13/16 Ondansetron Hcl* (Zofran*) 4 Mg Tablet, 4 MG PO Q6H for NAUSEA AND/OR VOMITING, #30 TAB Prov:DONYA JARAMILLO 07/13/16 Methylprednisolone* (Medrol* DOSE PACK) 4 Mg/Dose-Pack Tab.ds.pk, 4 MG PO . DIRECTED for 6 Days, PACKET Prov:DONYA JARAMILLO 07/13/16 Oxycodone HCl/Acetaminophen (Percocet 5-325 mg Tablet) 1 Each Tablet, 1 EACH PO Q6, #10 TAB Prov:DONYA JARAMILLO 07/13/16 Albuterol Sulfate* (Ventolin HFA*) 18 Gm Hfa.aer.ad, 2 PUFF INHALATION Q4H, #1 INHALER Prov:GAETANO LOCKWOOD MD 05/17/16 Ibuprofen* (Motrin*) 800 Mg Tab, 800 MG PO Q6H Y for PAIN AND OR ELEVATED TEMP, #30 TAB Prov:GAETANO LOCKWOOD MD 05/17/16 Oseltamivir Phosphate* (Tamiflu*) 75 Mg Capsule, 75 MG PO BID for 5 Days, CAP Prov:GAETANO LOCKWOOD MD 05/17/16 Hydrocodone/Acetaminophen (Hopewell 5-325 Tablet) 1 Each Tablet, 1 EACH PO Q8 Y for PAIN LEVEL 6-10, #20 TAB Prov:PRADIP SAGE 11/27/15 Allergies Allergies: Coded Allergies: lisinopril (Unverified Allergy, Unknown, 11/03/16) PMhx/Soc History of Surgery: Yes (Pacemaker Placed/Removal,) Anesthesia Reaction: No Hx Neurological Disorder: Yes (Bruxism) Hx Respiratory Disorders: Yes (Asthma) Hx Cardiac Disorders: Yes (HTN,CHF) Hx Psychiatric Problems: No Hx Miscellaneous Medical Probl: Yes (L Foot Fx,Muscle Spasms) Hx Alcohol Use: Yes (daily pint) Hx Substance Use: No Hx Tobacco Use: Yes (1/2 ppd) Physical Exam Vitals Vital Signs Date Time Temp Pulse Resp B/P Pulse Ox O2 Delivery O2 Flow Rate FiO2 03/03/17 05:00 95 13 159/91 99 Room Air 03/03/17 04:38 89 24 99 21 03/03/17 04:30 98.0 03/03/17 04:30 98.0 94 24 146/121 99 Physical Exam Const: No acute distress. Head: Atraumatic. Eyes: Normal Conjunctiva. ENT: Normal External Ears, Nose and Mouth. Neck: Full range of motion. No meningismus. Resp: Bilateral expiratory wheezes, tachypneic Cardio: Regular rate and rhythm. Abd: Soft, non distended, normal bowel sounds, non tender. Skin: No petechiae or rashes. Back: No midline or flank tenderness. Ext: No cyanosis, or edema. Neur: Awake and alert. No focal deficit Psych: Normal Mood and Affect. Result Diagram: 03/03/17 0442 Results 24 hrs Laboratory Tests Test 03/03/17 04:42 White Blood Count 7.310^3/ul Red Blood Count 4.8010^6/ul Hemoglobin 13.6g/dl Hematocrit 39.7% Mean Corpuscular Volume 82.7fl Mean Corpuscular Hemoglobin 28.3pg Mean Corpuscular Hemoglobin Concent 34.3g/dl Red Cell Distribution Width 13.4% Platelet Count 84910^3/UL Mean Platelet Volume 9.3fl Neutrophils % 51.8% Lymphocytes % 39.2% Monocytes % 7.0% Eosinophils % 0.3% Basophils % 1.4% Nucleated Red Blood Cells % 0.0/100WBC Neutrophils # 3.810^3/ul Lymphocytes # 2.910^3/ul Monocytes # 0.510^3/ul Eosinophils # 0.010^3/ul Basophils # 0.110^3/ul Nucleated Red Blood Cells # 0.010^3/ul Prothrombin Time 12.6Sec Prothrombin Time Ratio 1.0 INR International Normalized Ratio 0.93 Activated Partial Thromboplast Time 24.6Sec Current Medications Medications (Trade) Dose Ordered Sig/Valorie Route PRN Reason Start Time Stop Time Status Last Admin Dose Admin Levalbuterol (Xopenex Neb) 3.75 mg ONCE STAT INH 03/03/17 04:33 03/03/17 04:34 DC 03/03/17 04:37 Ipratropium [place] (Atrovent 0.02% (Neb)) 1.5 mg ONCE STAT INH 03/03/17 04:33 03/03/17 04:34 DC 03/03/17 04:37 Methylprednisolone Sodium Succinate 125 mg 125 mg ONCE STAT IV 03/03/17 04:33 03/03/17 04:34 DC 03/03/17 04:47 Magnesium Sulfate (Magnesium Sulfate 2 Gm/50 ml) 50 ml @ 25 mls/hr ONCE ONCE IVPB 03/03/17 05:00 03/03/17 06:59 03/03/17 04:51 Procedures/MDM labs pending MEDICAL MAKING DECISION: The patient is a 63-year-old female, presenting with acute asthma exacerbation. She was treated with Solu-Medrol 125 mg IV, Xopenex 3.75 mg and Atrovent 1.5 mg continuous nebulizer over one hour and magnesium 2 g IV over 20 minutes for acute asthma with good response The differential diagnoses considered include but are not limited to asthma, COPD, pneumonia, pulmonary embolus, pleural effusion, congestive heart failure. Departure Diagnosis: Primary Impression: Asthma Condition: Stable Comments I discussed the findings with the patient. I discussed the patient with the on- call hospitalist Mitch at 5:45 AM who was made aware of the lab, the treatment , the patient condition, pending labs. The patient is admitted to [facility] for 24 hr obs Disclaimer: Inadvertent spelling and grammatical errors are likely due to EHR/ dictation software use and do not reflect on the overall quality of patient care. Also, please note that the electronic time recorded on this note does not necessarily reflect the actual time of the patient encounter. CHANDRA RODRÍGUEZ MD Mar 03, 2017 04:32
[2017-03-03] MEDS ORDERED: IPRATROPIUM (NEB) 0.5 MG/2.5 ML AMP INH STA (04:33)
[2017-03-03] MEDS ORDERED: LEVALBUTEROL (NEB) 1.25 MG/0.5 ML AMP INH STA (04:33)
[2017-03-03] MEDS ORDERED: METHYLPREDNISOLONE 125 MG INJ IV STA (04:33)
[2017-03-03] MEDS ORDERED: MAGNESIUM SULFATE 2 GM/50 ML 50 ML IVPB ONE (05:00)
[2017-03-03 05:06] LABS: BASOPHIL # 0.1 10^3/ul (0.0-0.1); BASOPHILS % 1.4 % (0.0-2.0); EOSINOPHILS % 0.3 % (0.0-7.0); HEMATOCRIT 39.7 % (37.0-47.0); HEMOGLOBIN 13.6 g/dl (12.0-16.0); LYMPHOCYTES # 2.9 10^3/ul (0.8-2.9); LYMPHOCYTES % 39.2 % (15.0-51.0); MEAN CORPUSCULAR HEMOGLOBIN 28.3 pg (29.0-33.0); MEAN CORPUSCULAR HGB CONC 34.3 g/dl (32.0-37.0); MEAN CORPUSCULAR VOLUME 82.7 fl (82.0-101.0); MEAN PLATELET VOLUME 9.3 fl (7.4-10.4); MONOCYTE # 0.5 10^3/ul (0.3-0.9); NEUTROPHIL # 3.8 10^3/ul (1.6-7.5); NEUTROPHILS % 51.8 % (39.0-77.0); PLATELET COUNT 275 10^3/UL (140-415); RED CELL DISTRIBUTION WIDTH 13.4 % (11.5-14.5); WHITE BLOOD COUNT 7.3 10^3/ul (4.8-10.8)
[2017-03-03 05:35] LABS: INR 0.93; PARTIAL THROMBOPLASTIN TIME 24.6 Sec (25.0-35.0); PROTIME 12.6 Sec (11.9-14.9)
[2017-03-03 05:38] LABS: ANION GAP 19 (8-16); BLOOD UREA NITROGEN 10 mg/dl (7-20); CALCIUM 9.2 mg/dl (8.4-10.2); CARBON DIOXIDE 22 mmol/L (21-31); CHLORIDE 109 mmol/L (97-110); CREATININE 0.65 mg/dl (0.44-1.00); GLUCOSE 99 mg/dl (70-220); SODIUM 147 mmol/L (135-144)
[2017-03-03 05:50] LABS: B-TYPE NATRIURETIC PEPTIDE 188 PG/ML (0-125)
[2017-03-03 05:51] LABS: TROPONIN-I < 0.012 ng/ml (0.00-0.12)
[2017-03-03 05:53] LABS: POTASSIUM 2.9 mmol/L (3.5-5.1)
[2017-03-03] MEDS ORDERED: POTASSIUM CHLORIDE (SR) 20 MEQ TAB PO STA ×2 (05:54)
[2017-03-03] MEDS: PANTOPRAZOLE (EC) 40 MG TAB PO SCH (07:00)
[2017-03-03] MEDS ORDERED: ONDANSETRON 4 MG INJ IV PRN (07:00)
[2017-03-03] MEDS ORDERED: NACL 0.9% 3 ML SYG IV SCH (07:00)
[2017-03-03] MEDS ORDERED: ACETAMINOPHEN 325 MG TAB PO PRN (07:00)
--- NOTE | 2017-03-03 07:24 | RADRPT ---
PROCEDURE: XR Chest. CLINICAL INDICATION: chest pain TECHNIQUE: Single frontal view of the chest was obtained COMPARISON: CR CHEST 05/17/2016 FINDINGS: The heart and mediastinum are within normal limits. There is a left-sided AICD in place. The lungs are clear. There is no pleural effusion or pneumothorax. RPTAT: AA IMPRESSION: No acute disease. .Benja Tubbs MD, MD Date Time Electronically viewed and signed by .Benja Tubbs MD, MD on 03/03/2017 07:24 .S/
--- NOTE | 2017-03-03 08:58 | HP ---
Date/Time of Note Date/Time of Note DATE: 03/03/17 TIME: 08:58 Assessment/Plan VTE Prophylaxis VTE Prophylaxis Intervention: LMWH Assessment/Plan Chief Complaint/Hosp Course 1. Asthma exacerbation. The patient will be continued on inhaled bronchodilators. The patient will be maintained on tapering dose of steroids. She will also be started on leukotriene inhibitors. 2. Hypertension. The patient verbalized that at one point of time she was on antihypertensives. However, currently she is off antihypertensives. She will be maintained on as needed antihypertensives. 3. Hypokalemia. The patient's potassium was repleted. Will repeat a potassium level. 4. Nicotine use. Cessation will be advised. The patient will be provided with a nicotine patch in case if she has symptoms of nicotine withdrawal. 5. Obesity. BMI of 34.2 kg/m. A fasting lipid panel will be obtained. A hemoglobin A1c will be obtained. The patient will be advised on weight reduction. Plan: The patient will be admitted to inpatient telemetry floor. The patient will be started on a low-cholesterol diet. The patient will be started on DVT prophylaxis and gastrointestinal prophylaxis. The patient will remain a full code. Activities will be as tolerated. The rest of the patient's management will be based on the clinical course and the results of diagnostic studies. Based on the patient's clinical presentation, she most probably requires at least 1 midnight's stay for further management and evaluation of her clinical presentation. The case and management of this patient was fully discussed with Dr. Fowler. Problems: HPI/ROS Admit Date/Time Admit Date/Time Mar 03, 2017 at 05:45 Hx of Present Illness Reason for admission: Dyspnea. This is a 61-year-old -[place] female with past medical history of asthma, cardiac arrhythmia status post AICD placement, nicotine use, and chronic back pain who came to the emergency room with chief complaint of sudden onset of respiratory distress. The patient verbalized that she ran out of her asthma inhalers. The patient was also complaining of a nonproductive cough. The patient denied any fevers, chills, nausea, vomiting, or diaphoresis. The patient denied any dysuria. In the emergency room, the patient was noticed to have hypokalemia. The patient 's chest x-ray was negative for any acute cardiopulmonary findings. The patient was treated with IV magnesium sulfate and inhaled bronchodilators and inhaled anticholinergics along with IV steroids. ROS Constitutional: no complaints Eyes: no complaints ENT: no complaints Respiratory: cough, shortness of breath Cardiovascular: no complaints Gastrointestinal: no complaints Genitourinary: no complaints Musculoskeletal: back pain (Chronic) Skin: no complaints Neurologic: headache Endocrine: no complaints Lymphatic: no complaints Psychological: no complaints Immunologic: no complaints PMH/Family/Social Past Medical History Medical History: hypertension, other (Asthma, nicotine use, bruxism, chronic back pain.) Past Surgical History Past Surgical Hx: other (AICD placement, 2) Social History Alcohol Use: occasionally Smoking Status: Current every day smoker Drug Use: none Exam/Review of Systems Vital Signs Vitals Vital Signs Date Time Temp Pulse Resp B/P Pulse Ox O2 Delivery O2 Flow Rate FiO2 03/03/17 08:10 75 03/03/17 06:00 14 170/85 99 Room Air 03/03/17 04:38 21 03/03/17 04:30 98.0 Exam Exam General: Obese, 61 year-old female lying in bed in no apparent distress. HEENT: Normocephalic, atraumatic. Eyes: Anicteric sclerae, conjunctivae clear. ENT: Nasal septum midline, oral mucosa moist. Neck supple, no JVD noticed. Respiratory: Bilaterally diminished breath sounds. No use of accessory muscles of respiration. Cardiovascular: S1, S2 heard. Regular rate and rhythm. Abdomen: Soft, nontender, and nondistended. Bowel sounds positive in all 4 quadrants. Genitourinary: Deferred. Extremities: No cyanosis, no clubbing, no edema. Peripheral pulses palpable. Neurologic: Cranial nerves II through XII grossly intact. The patient is awake, alert, and oriented. Skin: Normal skin turgor. No skin rashes. Labs Result Diagram: 03/03/17 0442 03/03/172 Medications Medications Current Medications Ondansetron HCl (Zofran Inj) 4 mg Q6H PRN IV NAUSEA AND/OR VOMITING; Start 03/03/17 at 07:00 Acetaminophen (Tylenol Tab) 650 mg Q6H PRN PO PAIN LEVEL 1-3 OR FEVER; Start 03/03/17 at 07:00 Pantoprazole (Protonix Tab) 40 mg DAILY@06 PO ; Start 03/03/17 at 07:00 Prednisone (Prednisone) 40 mg DAILY PO ; Start 03/04/17 at 09:00; Stop 03/09/17 at 08:59 MYRON MATOS NP Mar 03, 2017 08:58
[2017-03-03] MEDS: LEVALBUTEROL (NEB) 0.63 MG/3 ML AMP HHN SCH ×4 (09:00→21:00)
[2017-03-03] MEDS ORDERED: GUAIFENESIN/CODEINE 5ML CUP PO PRN (09:00)
[2017-03-03] MEDS ORDERED: AMLODIPINE 2.5 MG TAB PO SCH (09:00)
[2017-03-03] MEDS: OXYCODONE/ACETAMINOPHEN (5/325) TAB PO PRN ×2 (09:21→16:44)
[2017-03-03] MEDS: ENOXAPARIN 40 MG/0.4 ML SYG SC SCH (10:00)
[2017-03-03] MEDS ORDERED: hydrALAzine 20 MG INJ IV PRN (10:00)
[2017-03-03] MEDS: PROMETHAZINE/CODEINE 5ML CUP PO PRN ×2 (10:56→15:13)
[2017-03-03] MEDS: NIFEdipine (XL) 30 MG TAB PO SCH ×2 (12:16→20:16)
[2017-03-03] MEDS: LORAZEPAM 0.5 MG TAB PO PRN ×2 (12:16→20:16)
[2017-03-03 16:30] LABS: CANNABINOIDS Negative (NEGATIVE)
[2017-03-03 16:31] LABS: BARBITURATES Negative (NEGATIVE); BENZODIAZEPINES Negative (NEGATIVE); COCAINE Negative (NEGATIVE); OPIATES Positive (NEGATIVE)
[2017-03-03] MEDS ORDERED: MONTELUKAST 10 MG TAB PO SCH (21:00)
[2017-03-04 00:11] VITALS: PULSE 75
[2017-03-04 00:27] VITALS: BP 159/79; RESP 20
[2017-03-04] MEDS: LEVALBUTEROL (NEB) 0.63 MG/3 ML AMP HHN SCH ×4 (00:31→13:00)
[2017-03-04] MEDS: PROMETHAZINE/CODEINE 5ML CUP PO PRN ×2 (02:48→08:38)
[2017-03-04] MEDS: OXYCODONE/ACETAMINOPHEN (5/325) TAB PO PRN ×2 (02:49→08:38)
[2017-03-04 04:00] VITALS: BP 140/78; RESP 16
[2017-03-04 04:28] VITALS: PULSE 68
[2017-03-04 05:58] LABS: BASOPHILS % 0.3 % (0.0-2.0); HEMATOCRIT 38.5 % (37.0-47.0); HEMOGLOBIN 13.3 g/dl (12.0-16.0); LYMPHOCYTES # 1.7 10^3/ul (0.8-2.9); LYMPHOCYTES % 18.5 % (15.0-51.0); MEAN CORPUSCULAR HEMOGLOBIN 28.9 pg (29.0-33.0); MEAN CORPUSCULAR HGB CONC 34.5 g/dl (32.0-37.0); MEAN CORPUSCULAR VOLUME 83.7 fl (82.0-101.0); MONOCYTE # 0.7 10^3/ul (0.3-0.9); MONOCYTES % 7.7 % (0.0-11.0); NEUTROPHIL # 6.8 10^3/ul (1.6-7.5); NEUTROPHILS % 73.2 % (39.0-77.0); PLATELET COUNT 270 10^3/UL (140-415); RED CELL DISTRIBUTION WIDTH 13.9 % (11.5-14.5); WHITE BLOOD COUNT 9.3 10^3/ul (4.8-10.8)
[2017-03-04] MEDS: PANTOPRAZOLE (EC) 40 MG TAB PO SCH (06:21)
[2017-03-04 06:45] LABS: ALBUMIN 3.9 g/dl (3.3-4.9); ALBUMIN/GLOBULIN RATIO 1.18; BILIRUBIN,INDIRECT 0.4 mg/dl (0-1.1); BILIRUBIN,TOTAL 0.4 mg/dl (0.2-1.3); CALCIUM 10.1 mg/dl (8.4-10.2); CREATININE 0.67 mg/dl (0.44-1.00); POTASSIUM 3.6 mmol/L (3.5-5.1); TOTAL PROTEIN 7.2 g/dl (6.1-8.1)
[2017-03-04 07:09] LABS: THYROID STIMULATING HORMONE 0.946 MIU/L (0.465-4.680)
[2017-03-04 08:00] VITALS: BP 143/72; RESP 19
[2017-03-04 08:06] VITALS: PULSE 112
[2017-03-04] MEDS: NIFEdipine (XL) 30 MG TAB PO SCH (08:39)
[2017-03-04] MEDS: ENOXAPARIN 40 MG/0.4 ML SYG SC SCH (08:44)
[2017-03-04] MEDS ORDERED: predniSONE 20 MG TAB PO SCH (09:00)
--- NOTE | 2017-03-04 10:42 | PDOCDIS ---
Discharge Instructions DIAGNOSIS Discharge Diagnosis Asthma exacerbation. CONDITION Patient Condition: Stable HOME CARE INSTRUCTIONS: Diet Instructions: Regular FOLLOW UP/APPOINTMENTS Follow-up Plan Mark Shen MD Specialty: Internal Medicine Office Address: [address] [place], [place] [id number] Office OTHER ORDERS: Other Orders: 1. Take medications as per prescription. 2. Take a regular diet. 3. Follow-up with your primary care physician in the next 1-2 weeks. If you do not have a primary care physician, please call Dr. Mark Shen's office. 4. Activities as tolerated. 5. Avoid nicotine use. MYRON MATOS NP Mar 04, 2017 10:42
[2017-03-04] MEDS ORDERED: PRED20TA PO (10:44)
[2017-03-04] MEDS ORDERED: MONT10TA24 PO (10:46)
[2017-03-04] MEDS ORDERED: NIFE30TA2 PO (10:46)
[2017-03-04] MEDS ORDERED: Promethazine/Codeine Syp PO (10:46)
--- NOTE | 2017-03-04 12:18 | DS ---
Date/Time of Note Date/Time of Note DATE: 03/04/17 TIME: : Discharge Summary Admission/Discharge Info Admit Date/Time Mar 03, 2017 at 05:45 Discharge Date/Time Discharge Diagnosis 1. Asthma exacerbation. 2. Hypertension. 3. Chronic back pain. 4. S/P permanent pacemaker placement. 5. Nicotine use. 6. Obesity Patient Condition: Stable Procedures CXR IMPRESSION: No acute disease. Hx of Present Illness Reason for admission: Dyspnea. This is a 61-year-old -[place] female with past medical history of asthma, cardiac arrhythmia status post AICD placement, nicotine use, and chronic back pain who came to the emergency room with chief complaint of sudden onset of respiratory distress. The patient verbalized that she ran out of her asthma inhalers. The patient was also complaining of a nonproductive cough. The patient denied any fevers, chills, nausea, vomiting, or diaphoresis. The patient denied any dysuria. In the emergency room, the patient was noticed to have hypokalemia. The patient 's chest x-ray was negative for any acute cardiopulmonary findings. The patient was treated with IV magnesium sulfate and inhaled bronchodilators and inhaled anticholinergics along with IV steroids. Hospital Course The patient was admitted to inpatient setting. She was started on tapering dose of steroids and inhaled bronchodilators. The patient responded well to the treatment strategy. She was also started on leukotriene inhibitors. The patient continues to smoke. The patient was advised multiple times on the importance of quitting the use of nicotine. Upon discharge, the patient will be provided with tapering dose of nicotine patch. The patient has underlying hypertension. However, she was not taking any antihypertensives regularly. During this hospitalization, the patient was noticed to have uncontrolled blood pressure readings. Consequently, the patient was started on calcium channel blockers. The patient's blood pressure improved with the treatment strategy. The patient has underlying chronic back pain. The patient was maintained on appropriate analgesics. The patient was noticed to be obese with a BMI of 34.2 kg/m. The patient's hemoglobin A1c and fasting lipid panel was within normal limits. The patient responded very well and rapidly to the treatment strategy and she is stable to be discharged home. Discharge Disposition/Plan 1. Take medications as per prescription. 2. Take a regular diet. 3. Follow-up with your primary care physician in the next 1-2 weeks. If you do not have a primary care physician, please call Dr. Mark Shen's office. 4. Activities as tolerated. 5. Avoid nicotine use. The patient verbalized understanding of her discharge instructions. The case and management of this patient was fully discussed with Dr. Fowler. Home Meds Active Scripts Nicotine* (Nicotine* Patch) 7 mg/day Patch, 1 PATCH TD DAILY, #14 PATCH Nicotine transdermal 14 mg Q daily for 6 weeks followed by Nicotine transdermal 7 mg Q daily for 2 weeks. Prov:MYRON MATOS NP 03/04/17 [Promethazine/Codeine Syp] 5 ML SYRUP No Conflict Check, 5 ML PO Q4H Y for COUGH , #10 UNIT Prov:MYRON MATOS NP 03/04/17 Montelukast Sodium* (Montelukast Sodium*) 10 Mg Tablet, 10 MG PO HS, #30 TAB Prov:MYRON MATOS NP 03/04/17 Nifedipine (Procardia Xl) 30 Mg Tab.er.24, 30 MG PO BID, #60 TAB Prov:MYRON MATOS NP 03/04/17 Prednisone* (Prednisone*) 20 Mg Tab, 40 MG PO DAILY, #2 TAB Prednisone 40 mg p.o. daily 2 days, then Prednisone 20 mg p.o. daily 2 days, then Prednisone 10 mg p.o. daily 2 days, then Prednisone 5 mg p.o. daily 2 days. Prov:MYRON MATOS NP 03/04/17 Albuterol Sulfate* (Proair HFA*) 8.5 Gm Hfa.aer.ad, 2 PUFF INH Q4, #1 INHALER Prov:CHAVEZ LIM PA-C 09/04/16 Oxycodone HCl/Acetaminophen (Percocet 5-325 mg Tablet) 1 Each Tablet, 1 EACH PO Q6, #10 TAB Prov:DONYA JARAMILLO 07/13/16 Discontinued Scripts Hydrocodone/Acetaminophen (Sterling 5-325 Tablet) 1 Each Tablet, 1 TAB PO Q6H Y for PAIN, #7 TAB Prov:CHAVEZ LIM PA-C 11/03/16 Naproxen* (Naprosyn*) 500 Mg Tablet, 500 MG PO BID Y for PAIN AND/OR INFLAMMATION, #30 TAB Prov:CHAVEZ LIM PA-C 8/4/17 Hydrocodone/Acetaminophen (Sterling 5-325 Tablet) 1 Each Tablet, 1 TAB PO Q6H Y for PAIN, #7 TAB Prov:CHAVEZ LIM PA-C 09/04/16 Naproxen* (Naprosyn*) 500 Mg Tablet, 500 MG PO BID Y for PAIN AND/OR INFLAMMATION, #30 TAB Prov:CHAVEZ LIM PA-C 09/04/16 Dextromethorphan Hb-Promethazine Hcl (Promethazine DM Syrup) 473 Ml Syrup, 10 ML PO Q6H Y for COUGH, #4 OZ Prov:DONYA JARAMILLO 07/13/16 Ondansetron Hcl* (Zofran*) 4 Mg Tablet, 4 MG PO Q6H for NAUSEA AND/OR VOMITING, #30 TAB Prov:DONYA JARAMILLO 07/13/16 Methylprednisolone* (Medrol* DOSE PACK) 4 Mg/Dose-Pack Tab.ds.pk, 4 MG PO . DIRECTED for 6 Days, PACKET Prov:DONYA AJRAMILLO 07/13/16 Albuterol Sulfate* (Ventolin HFA*) 18 Gm Hfa.aer.ad, 2 PUFF INHALATION Q4H, #1 INHALER Prov:GAETANO LOCKWOOD MD 05/17/16 Ibuprofen* (Motrin*) 800 Mg Tab, 800 MG PO Q6H Y for PAIN AND OR ELEVATED TEMP, #30 TAB Prov:GAETANO LOCKWOOD MD 05/17/16 Oseltamivir Phosphate* (Tamiflu*) 75 Mg Capsule, 75 MG PO BID for 5 Days, CAP Prov:GAETANO LOCKWOOD MD 05/17/16 Hydrocodone/Acetaminophen (Sterling 5-325 Tablet) 1 Each Tablet, 1 EACH PO Q8 Y for PAIN LEVEL 6-10, #20 TAB Prov:PRADIP SAGE 11/27/15 Follow-up Plan Mark Shen MD Specialty: Internal Medicine Office Address: [address] [place] [address] Office Primary Care Provider Not On Staff Doctor Time spent on discharge: 40 mins Pending Labs Laboratory Tests Test 03/03/17 14:20 03/04/17 05:18 Urine Opiates Screen Positive (NEGATIVE) Urine Barbiturates Negative (NEGATIVE) Urine Amphetamines Screen Negative (NEGATIVE) Urine Benzodiazepines Screen Negative (NEGATIVE) Urine Cocaine Screen Negative (NEGATIVE) Urine Cannabinoids Negative (NEGATIVE) White Blood Count 9.310^3/ul (4.8-10.8) Red Blood Count 4.6010^6/ul (4.20-5.40) Hemoglobin 13.3g/dl (12.0-16.0) Hematocrit 38.5% (37.0-47.0) Mean Corpuscular Volume 83.7fl (82.0-101.0) Mean Corpuscular Hemoglobin 28.9pg (29.0-33.0) Mean Corpuscular Hemoglobin Concent 34.5g/dl (32.0-37.0) Red Cell Distribution Width 13.9% (11.5-14.5) Platelet Count 54260^3/UL (140-415) Mean Platelet Volume 10.0fl (7.4-10.4) Neutrophils % 73.2% (39.0-77.0) Lymphocytes % 18.5% (15.0-51.0) Monocytes % 7.7% (0.0-11.0) Eosinophils % 0.0% (0.0-7.0) Basophils % 0.3% (0.0-2.0) Nucleated Red Blood Cells % 0.0/100WBC (0.0-0.0) Neutrophils # 6.810^3/ul (1.6-7.5) Lymphocytes # 1.710^3/ul (0.8-2.9) Monocytes # 0.710^3/ul (0.3-0.9) Eosinophils # 0.010^3/ul (0.0-0.5) Basophils # 0.010^3/ul (0.0-0.1) Nucleated Red Blood Cells # 0.010^3/ul (0.0-0.0) Sodium Level 142mmol/L (135-144) Potassium Level 3.6mmol/L (3.5-5.1) Chloride Level 104mmol/L (97-110) Carbon Dioxide Level 29mmol/L (21-31) Anion Gap 13 (8-16) Blood Urea Nitrogen 13mg/dl (7-20) Creatinine 0.67mg/dl (0.44-1.00) Glucose Level 120mg/dl (70-220) Hemoglobin A1c 5.4% (0-5.9) Calcium Level 10.1mg/dl (8.4-10.2) Magnesium Level 2.0mg/dl (1.7-2.5) Total Bilirubin 0.4mg/dl (0.2-1.3) Direct Bilirubin 0.00mg/dl (0.00-0.20) Indirect Bilirubin 0.4mg/dl (0-1.1) Aspartate Amino Transf (AST/SGOT) 21IU/L (15-46) Alanine Aminotransferase (ALT/SGPT) 31IU/L (13-69) Alkaline Phosphatase 96IU/L (42-121) Total Protein 7.2g/dl (6.1-8.1) Albumin 3.9g/dl (3.3-4.9) Globulin 3.30g/dl (1.3-3.2) Albumin/Globulin Ratio 1.18 Triglycerides Level 69mg/dl (0-149) Cholesterol Level 162mg/dl (100-200) LDL Cholesterol, Calculated 67mg/dl HDL Cholesterol 81mg/dl (35-98) Cholesterol/HDL Ratio 2.0RATIO Thyroid Stimulating Hormone (TSH) 0.946MIU/L (0.465-4.680) Free Thyroxine 0.65ng/dl (0.78-2.44) MYRON MATOS NP Mar 04, 2017 12:18
[2017-03-04] MEDS ORDERED: NICO1PAT43 TD (12:22)
== END 2017-03-04 13:38 | disposition home or self-care (01) ==
LOC: E/R 04:29 → MS4 05:45
PROVIDERS: ADMIT Family Medicine; ATTEND Family Medicine
DX: J45.901 Unspecified asthma with (acute) exacerbation (principal); I10 Essential (primary) hypertension; E87.6 Hypokalemia; G89.29 Other chronic pain; M54.5 Low back pain; E66.9 Obesity, unspecified; Z68.34 Body mass index [BMI] 34.0-34.9, adult; Z72.0 Tobacco use; Z95.0 Presence of cardiac pacemaker
CPT/HCPCS: 36415; 71010; 80048; 80053; 80061; 80307; 83036; 83735; 83880; 84132; 84439; 84443; 84484; 85025; 85610; 85730; 93005; 94640; 94644; 94664; 96374; 96375; 99285; G0378; J0360; J2930; J3475; J7512

== ENCOUNTER 2017-04-09 13:43 | Emergency (ER) | END 2017-04-09 17:07 | disposition home or self-care (01) ==

== ENCOUNTER 2017-05-20 15:03 | Emergency (ER) | END 2017-05-20 20:05 | disposition home or self-care (01) ==